=== PATIENT | male | born 1945 | race Hispanic/Latino ===

== ENCOUNTER 2017-12-02 01:49 | Emergency (ER) | payer MEDICARE, MEDICAID ==
[2017-12-02 01:49] VITALS: BMI 25.0
[2017-12-02 02:05] VITALS: BP 153/74; PULSE 65; RESP 16; TEMP 98; O2SAT 98
--- NOTE | 2017-12-02 02:20 | ED PDOC ---
HPI: General Adult Time Seen by Provider: 12/02/17 02:17 Chief Complaint (Nursing): Medical Clearance Chief Complaint (Provider): medical clearance History Per: Patient (72 y/o male here for evaluation prior to incarceration. Patient admits heroin use undisclosed amount 4 hours ago. Denies any chest pain /abd pain. Notes h/o parkinson's disease and plans to f/u for care. Denies any SI/HI.) Past Medical History Reviewed: Historical Data, Nursing Documentation, Vital Signs Vital Signs: Last Vital Signs Temp 98.0 F 12/02/17 02:03 Pulse 65 12/02/17 02:03 Resp 16 12/02/17 02:03 BP 153/74 H 12/02/17 02:03 Pulse Ox 98 12/02/17 02:21 - Medical History PMH: Pneumonia Denies: Depression, Diabetes, Hepatitis, HIV, HTN, Chronic Kidney Disease, Seizures, Sexually Transmitted Disease - Surgical History Surgical History: Appendectomy, Cholecystectomy, Tonsillectomy - Family History Family History: States: Unknown Family Hx - Immunization History Hx Tetanus Toxoid Vaccination: No Hx Influenza Vaccination: No Hx Pneumococcal Vaccination: No - Home Medications Home Medications: Ambulatory Orders Medication Instructions Recorded Cephalexin [cephalexin] 500 mg PO Q6H 03/15/17 Clindamycin [Cleocin] 300 mg PO TID #30 cap 03/15/17 Sulfamethoxazole/Trimethoprim 1 tab PO Q12H 03/15/17 [Bactrim DS Tab] Clindamycin [Cleocin] 300 mg PO QID #28 cap 03/19/17 Azithromycin [Zithromax] 250 mg PO DAILY #4 tab 07/19/17 Mupirocin 2% Cream [Bactroban 30 applic TOP BID #1 tube 08/18/17 Cream] - Allergies Allergies/Adverse Reactions: Allergies Allergy/AdvReac Type Severity Reaction Status Date / Time ibuprofen [From Motrin] Allergy ANAPHYLAXIS Verified 04/29/16 09:09 nitroglycerin Allergy ANAPHYLAXIS Verified 04/29/16 09:09 Review of Systems ROS Statement: Except As Marked, All Systems Reviewed And Found Negative Physical Exam - Reviewed Nursing Documentation Reviewed: Yes Vital Signs Reviewed: Yes - Physical Exam Appears: Positive for: Well, Non-toxic, No Acute Distress Head Exam: Positive for: ATRAUMATIC, NORMAL INSPECTION, NORMOCEPHALIC Skin: Positive for: Normal Color, Warm, DRY Eye Exam: Positive for: EOMI, Normal appearance, PERRL ENT: Positive for: Normal ENT Inspection Neck: Positive for: Normal, Painless ROM Cardiovascular/Chest: Positive for: Regular Rate, Rhythm Respiratory: Positive for: CNT, Normal Breath Sounds Gastrointestinal/Abdominal: Positive for: Normal Exam, Soft Back: Positive for: Normal Inspection Extremity: Positive for: Normal ROM Neurologic/Psych: Positive for: Alert, Oriented - ECG O2 Sat by Pulse Oximetry: 98 - Progress ED Course And Treament: Seen by Crisis Cleared for incarceration as per Dr. Hou Diagnosis Adjustment Disorder Disposition - Clinical Impression Clinical Impression: Heroin abuse - Patient ED Disposition Is Patient to be Admitted: No - Disposition Disposition: Routine/Home Disposition Time: 02:21 Condition: FAIR Additional Instructions: PATIENT IS MEDICALLY AND PSYCHIATRICALLY CLEARED FOR INCARCERATION Instructions: Drug Abuse and Drug Addiction (DC) Forms: [employer] (Polish)
== END 2017-12-02 02:46 | disposition home or self-care (01) ==
LOC: H.ER 01:49
DX: F11.10 Opioid abuse, uncomplicated (principal); G20 Parkinson's disease; Z88.6 Allergy status to analgesic agent

== ENCOUNTER 2018-02-03 19:34 | Observation (INO) | payer MEDICARE, MEDICAID ==
[2018-02-03 19:34] VITALS: BMI 25.0
--- NOTE | 2018-02-03 20:24 | ED PDOC ---
HPI: Psych/Substance Abuse Time Seen by Provider: 02/03/18 20:07 Chief Complaint (Nursing): Substance Abuse Chief Complaint (Provider): substance abuse History Per: EMS History/Exam Limitations: no limitations Additional Complaint(s): 72 y/o male brought in by EMS for evaluation of substance abuse. [place]. Patient awake, alert upon arrival. Patient admit to taking Percocets today, history of heroin abuse as per chart. Denies acute medical or psychiatric complaints. Past Medical History Reviewed: Historical Data, Nursing Documentation, Vital Signs Vital Signs: Last Vital Signs Temp 100.2 F H 02/03/18 19:35 Pulse 122 H 02/03/18 19:35 Resp 20 02/03/18 19:35 BP 115/70 02/03/18 19:35 Pulse Ox 94 L 02/03/18 19:35 - Medical History PMH: Pneumonia Denies: Depression, Diabetes, Hepatitis, HIV, HTN, Chronic Kidney Disease, Seizures, Sexually Transmitted Disease - Surgical History Surgical History: Appendectomy, Cholecystectomy, Tonsillectomy - Family History Family History: States: Unknown Family Hx - Immunization History Hx Tetanus Toxoid Vaccination: No Hx Influenza Vaccination: No Hx Pneumococcal Vaccination: No - Home Medications Home Medications: Ambulatory Orders Medication Instructions Recorded Cephalexin [cephalexin] 500 mg PO Q6H 03/15/17 Clindamycin [Cleocin] 300 mg PO TID #30 cap 03/15/17 Sulfamethoxazole/Trimethoprim 1 tab PO Q12H 03/15/17 [Bactrim DS Tab] Clindamycin [Cleocin] 300 mg PO QID #28 cap 03/19/17 Azithromycin [Zithromax] 250 mg PO DAILY #4 tab 07/19/17 Mupirocin 2% Cream [Bactroban 30 applic TOP BID #1 tube 08/18/17 Cream] - Allergies Allergies/Adverse Reactions: Allergies Allergy/AdvReac Type Severity Reaction Status Date / Time ibuprofen [From Motrin] Allergy ANAPHYLAXIS Verified 04/29/16 09:09 nitroglycerin Allergy ANAPHYLAXIS Verified 04/29/16 09:09 Review of Systems ROS Statement: Except As Marked, All Systems Reviewed And Found Negative Physical Exam - Reviewed Nursing Documentation Reviewed: Yes Vital Signs Reviewed: Yes - Physical Exam Appears: Positive for: Well, Non-toxic, No Acute Distress Head Exam: Positive for: ATRAUMATIC, NORMAL INSPECTION, NORMOCEPHALIC Skin: Positive for: Normal Color Eye Exam: Positive for: EOMI. Negative for: PERRL (pinpoint nonreactive b/l), Periorbital swelling, Periorbital tenderness, Conjunctival injection ENT: Positive for: Normal ENT Inspection Cardiovascular/Chest: Positive for: Regular Rate, Rhythm Respiratory: Positive for: Normal Breath Sounds Gastrointestinal/Abdominal: Positive for: Normal Exam Back: Positive for: Normal Inspection Extremity: Positive for: Normal ROM Neurologic/Psych: Positive for: Alert, Oriented (x3) - Laboratory Results Result Diagrams: 02/03/18 20:51 02/03/18 20:51 - ECG O2 Sat by Pulse Oximetry: 94 - Progress ED Course And Treament: labs, urine, ekg, chest xray, IV fluids Patient given Benadryl IM for acute agitation/itching 1:1 ordered for flight risk Patient ripped out IV, attempting to leave ED. Ativan IM ordered EXAM: XR Chest, 1 View CLINICAL HISTORY: 72 years old, male; Signs and symptoms; Fever; Prior surgery; Surgery date: 6+ months; Surgery type: Pacemaker; Additional info: Substance abuse TECHNIQUE: Frontal view of the chest. COMPARISON: [facility] - CHEST ONE VIEW 07/19/2017 3:08 AM FINDINGS: Lungs: Mild bibasilar infiltrates or atelectasis. Pleural space: Unremarkable. No pneumothorax. Heart: Unremarkable. No cardiomegaly. Mediastinum: Unremarkable. Bones/joints: Unremarkable. Tubes, lines and devices: Pacemaker. IMPRESSION: Mild bibasilar infiltrates or atelectasis. Similar appearance on prior study. IV rocephin, IV zithro ordered Case discussed with Dr. Covarrubias, medical service on-call, for admission Will give one dose IV clinda to cover for possible aspiration pneumonia Disposition - Clinical Impression Clinical Impression: Pneumonia, Substance abuse - Patient ED Disposition Is Patient to be Admitted: Yes - Disposition Disposition Time: 00:00 Condition: FAIR
[2018-02-03] MEDS ORDERED: Sodium Chloride 0.9% 1,000 ML IV STA (20:25)
[2018-02-03 20:52] LABS: VENOUS BLOOD GAS BASE EXCESS 0.4 mmol/L (0.0-2.0); VENOUS BLOOD GAS PCO2 53 mmHg (40-60); VENOUS BLOOD GAS PO2 25 mm/Hg (30-55); VENOUS BLOOD PH 7.32 (7.32-7.43)
[2018-02-03 21:01] LABS: BASO % 0.3 % (0.0-2.0); EOS % 0.4 % (0.0-4.0); LYMPH % 8.4 % (20.0-40.0); MEAN CELL VOLUME 88.3 fl (80.0-94.0); MEAN CORPUSCULAR HEMOGLOBIN 29.1 pg (27.0-31.0); MONO % 8.4 % (0.0-10.0); NEUT # 9.7 K/uL (1.8-7.0); NEUT % 82.5 % (50.0-75.0); PLATELET COUNT 147 K/uL (130-400); RBC 4.11 Mil/uL (4.40-5.90); RED CELL DISTRIBUTION WIDTH 15.9 % (11.5-14.5); WHITE BLOOD COUNT 11.8 K/uL (4.8-10.8)
[2018-02-03 21:05] LABS: ALB/GLOB RATIO 1.3 (1.0-2.1); ALBUMIN 4.8 g/dL (3.5-5.0); CALCIUM 9.3 mg/dL (8.4-10.2); GFR NON-AFRICAN AMERICAN 33
[2018-02-03 21:09] LABS: ALT/SGPT 173 U/L (21-72); AST/SGOT 121 U/L (17-59); BLOOD UREA NITROGEN 49 mg/dl (9-20)
[2018-02-03] MEDS ORDERED: DiphenhydrAMINE 50 mg/ml Inj IM STA (21:49)
[2018-02-03 22:00] LABS: BASOPHIL 1 % (0-2); LYMPHOCYTE 19 % (20-50); MONOCYTE 6 % (0-10); NEUTROPHIL 74 % (42-75); PLATELET ESTIMATE NORMAL (NORMAL); TOTAL CELLS COUNTED 100
[2018-02-04] MEDS ORDERED: Azithromycin 500 MG in Sodium Chloride 0.9% 250 ML IVPB STA (00:24)
[2018-02-04] MEDS ORDERED: Clindamycin 150 mg/mL Inj IV STA (00:25)
[2018-02-04] MEDS ORDERED: Clindamycin 600mg/50ml D5W 600 MG/50 ML VIAL IVPB STA (00:34)
[2018-02-04] MEDS ORDERED: cefTRIAXone (Rocephin) 1 gm Inj ONE (02:01)
[2018-02-04] MEDS ORDERED: Azithromycin 500 MG IV IVPB ONE (05:48)
[2018-02-04 08:13] VITALS: O2SAT 98
[2018-02-04] MEDS ORDERED: Sod Polystyrene Sulf 15 gm/60 ml Susp PO ONE (08:38)
[2018-02-04 08:43] LABS: SQUAMOUS EPITHIAL < 1 /hpf (0-5); URINE BILIRUBIN NEGATIVE (NEGATIVE); URINE BLOOD NEGATIVE (NEGATIVE); URINE CALCIUM OXALATE CRYSTALS OCC /hpf (<OCC); URINE CLARITY SLIGHTY-CLOUDY (Clear); URINE COLOR YELLOW (YELLOW); URINE GLUCOSE (UA) NEG (Normal); URINE LEUKOCYTE ESTERASE NEG Leu/uL (Negative); URINE PROTEIN 100 mg/dL (NEGATIVE); URINE UROBILINOGEN 0.2-1.0 mg/dL (0.2-1.0)
--- NOTE | 2018-02-04 08:57 | RAD ---
Date of service: 02/03/2018 HISTORY: substance abuse COMPARISON: 07/19/2017 FINDINGS: LUNGS: Shallow lung volumes. No dense consolidation. There is vague opacity at the right lung base - a patchy infiltrate here is possible. PLEURA: No significant pleural effusion identified, no pneumothorax apparent. CARDIOVASCULAR: Mild cardiomegaly. Mild pulmonary venous congestion. Duallead pacemaker device. OSSEOUS STRUCTURES: No significant abnormalities. VISUALIZED UPPER ABDOMEN: Right upper quadrant post cholecystectomy status. OTHER FINDINGS: None. IMPRESSION: Shallow lung volumes accentuating the pulmonary vasculature. Cardiomegaly and mild pulmonary venous congestion suspect. Possible patchy interval infiltrate right lung base. Shallow lung volumes accentuating this. . Consider follow-up PA and lateral with greater inspiration when patient can tolerate.
[2018-02-04] MEDS ORDERED: Dextrose 5%/Lactated Ringer's 1,000 ML IV SCH (09:00)
[2018-02-04 09:03] LABS: BARBITURATES, UR NEGATIVE (NEGATIVE); BENZODIAZEPINES, UR NEGATIVE (NEGATIVE); OPIATES, UR POSITIVE (NEGATIVE); PHENCYCLIDINE, UR NEGATIVE (NEGATIVE)
--- NOTE | 2018-02-04 10:11 | CARD ---
APPROVED REPORT Date of service: 02/03/2018 <Conclusion> Ventricular-paced rhythm Abnormal ECG
[2018-02-04 12:02] VITALS: RESP 19
[2018-02-04] MEDS ORDERED: Oxycodone/Acetaminophen 5/325 mg Tab PO PRN (13:05)
[2018-02-04] MEDS ORDERED: Oxycodone/Acetaminophen 5/325 mg Tab ONE (13:37)
[2018-02-04 15:44] VITALS: BP 128/78; PULSE 78; TEMP 98
--- NOTE | 2018-02-04 16:40 | CP.PCM.HP ---
History of Present Illness - History of Present Illness History of Present Illness: 72 y/o M with a PMHx of Homeless situation and Heroin abuse was brought by EMS to ER [facility] for evaluation after [place]. CXR was suspicious for bilateral lower mccormick pneumonia. Ceftriaxone, Clindamycin and Azithromycin were administered in the ER. -Today, pt was evaluated and examined by bedside with DR Covarrubias. Pt is awake, alert, oriented x3. Pt c/o fatigue. Present on Admission - Present on Admission Any Indicators Present on Admission: No Review of Systems - Constitutional Constitutional: absent: Anorexia, Chills, Fever - EENT Eyes: absent: Change in Vision Nose/Mouth/Throat: absent: Nasal Congestion, Sore Throat, Facial Pain - Cardiovascular Cardiovascular: absent: Chest Pain, Palpitations - Respiratory Respiratory: absent: Cough, Dyspnea - Gastrointestinal Gastrointestinal: absent: Abdominal Pain, Bloating - Genitourinary Genitourinary: absent: Hematuria, Urinary Frequency, Voiding Freq/Small Amts Past Patient History - Infectious Disease Hx of Infectious Diseases: None - Tetanus Immunizations Tetanus Immunization: Up to Date - Past Medical History & Family History Past Medical History?: Yes - Past Social History Smoking Status: Never Smoked - CARDIAC Hx Hypertension: No - PULMONARY Hx Pneumonia: Yes - NEUROLOGICAL Hx Seizures: No - HEENT Hx HEENT Problems: No - RENAL Hx Chronic Kidney Disease: No - ENDOCRINE/METABOLIC Hx Endocrine Disorders: No - HEMATOLOGICAL/ONCOLOGICAL Hx Human Immunodeficiency Virus (HIV): No - INTEGUMENTARY Hx Dermatological Problems: Yes Hx Cellulitis: Yes (Chronic cellulits B/L thighs) - MUSCULOSKELETAL/RHEUMATOLOGICAL Hx Musculoskeletal Disorders: Yes - GASTROINTESTINAL Hx Gastrointestinal Disorders: No - GENITOURINARY/GYNECOLOGICAL Hx Sexually Transmitted Disorders: No - PSYCHIATRIC Hx Depression: No - SURGICAL HISTORY Hx Appendectomy: Yes Hx Cholecystectomy: Yes Hx Tonsillectomy: Yes - ANESTHESIA Hx Anesthesia: Yes Hx Anesthesia Reactions: No Meds Allergies/Adverse Reactions: Allergies Allergy/AdvReac Type Severity Reaction Status Date / Time ibuprofen [From Motrin] Allergy ANAPHYLAXIS Verified 04/29/16 09:09 nitroglycerin Allergy ANAPHYLAXIS Verified 04/29/16 09:09 Physical Exam - Constitutional Appears: Well, No Acute Distress - Head Exam Head Exam: NORMAL INSPECTION - Eye Exam Eye Exam: EOMI, Normal appearance - ENT Exam ENT Exam: Mucous Membranes Moist - Neck Exam Neck exam: Positive for: Normal Inspection - Respiratory Exam Respiratory Exam: Decreased Breath Sounds (on bilateral lower mccormick. ), NORMAL BREATHING PATTERN - Cardiovascular Exam Cardiovascular Exam: REGULAR RHYTHM, +S1, +S2 - GI/Abdominal Exam GI & Abdominal Exam: Normal Bowel Sounds, Soft. absent: Distended, Guarding, Tenderness - Extremities Exam Extremities exam: Positive for: full ROM. Negative for: calf tenderness - Neurological Exam Neurological exam: Alert, Oriented x3 Results - Vital Signs Recent Vital Signs: Last Vital Signs Temp 98 F 02/04/18 15:42 Pulse 78 02/04/18 15:42 Resp 19 02/04/18 15:42 BP 128/78 02/04/18 15:42 Pulse Ox 98 02/04/18 15:42 - Labs Result Diagrams: 02/03/18 20:51 02/03/18 20:51 Labs: Laboratory Results - last 24 hr 02/03/18 02/03/18 02/03/18 20:18 20:31 20:51 WBC 11.8 H D RBC 4.11 L Hgb 12.0 Hct 36.2 MCV 88.3 D MCH 29.1 MCHC 33.0 RDW 15.9 H Plt Count 147 MPV 9.0 Neut % (Auto) 82.5 H Lymph % (Auto) 8.4 L Hendricks % (Auto) 8.4 Eos % (Auto) 0.4 Baso % (Auto) 0.3 Neut # (Auto) 9.7 H Lymph # (Auto) 1.0 Hendricks # (Auto) 1.0 H Eos # (Auto) 0.0 Baso # (Auto) 0.0 Neutrophils % (Manual) 74 Lymphocytes % (Manual) 19 L Monocytes % (Manual) 6 Basophils % (Manual) 1 Platelet Estimate Normal pO2 25 L VBG pH 7.32 VBG pCO2 53 VBG HCO3 24.1 VBG Total CO2 28.9 H VBG O2 Sat (Calc) 53.6 VBG Base Excess 0.4 VBG Potassium 5.1 Sodium 136.0 Chloride 102.0 Glucose 120 H Lactate 2.3 H FiO2 21.0 Potassium Carbon Dioxide Anion Gap BUN Creatinine Est GFR ( Amer) Est GFR (Non-Af Amer) POC Glucose (mg/dL) 128 H Random Glucose Lactic Acid Calcium Total Bilirubin AST ALT Alkaline Phosphatase Total Protein Albumin Globulin Albumin/Globulin Ratio Venous Blood Potassium 5.1 Urine Color Urine Clarity Urine pH Ur Specific [place] Urine Protein Urine Glucose (UA) Urine Ketones Urine Blood Urine Nitrate Urine Bilirubin Urine Urobilinogen Ur Leukocyte Esterase Urine RBC (Auto) Urine Microscopic WBC Ur Squamous Epith Cells Calcium Oxalate Crystal Urine Opiates Screen Urine Methadone Screen Ur Barbiturates Screen Ur Phencyclidine Scrn Ur Amphetamines Screen U Benzodiazepines Scrn U Oth Cocaine Metabols U Cannabinoids Screen Alcohol, Quantitative 02/03/18 02/04/18 02/04/18 20:51 01:33 08:32 WBC RBC Hgb Hct MCV MCH MCHC RDW Plt Count MPV Neut % (Auto) Lymph % (Auto) Hendricks % (Auto) Eos % (Auto) Baso % (Auto) Neut # (Auto) Lymph # (Auto) Hendricks # (Auto) Eos # (Auto) Baso # (Auto) Neutrophils % (Manual) Lymphocytes % (Manual) Monocytes % (Manual) Basophils % (Manual) Platelet Estimate pO2 VBG pH VBG pCO2 VBG HCO3 VBG Total CO2 VBG O2 Sat (Calc) VBG Base Excess VBG Potassium Sodium 139 Chloride 101 Glucose Lactate FiO2 Potassium 5.4 H Carbon Dioxide 21 L Anion Gap 22 H BUN 49 H Creatinine 2.0 H Est GFR ( Amer) 40 Est GFR (Non-Af Amer) 33 POC Glucose (mg/dL) Random Glucose 117 H Lactic Acid 1.4 Calcium 9.3 Total Bilirubin 1.3 AST 121 H D ALT 173 H D Alkaline Phosphatase 69 Total Protein 8.6 H Albumin 4.8 Globulin 3.8 Albumin/Globulin Ratio 1.3 Venous Blood Potassium Urine Color Urine Clarity Urine pH Ur Specific [place] Urine Protein Urine Glucose (UA) Urine Ketones Urine Blood Urine Nitrate Urine Bilirubin Urine Urobilinogen Ur Leukocyte Esterase Urine RBC (Auto) Urine Microscopic WBC Ur Squamous Epith Cells Calcium Oxalate Crystal Urine Opiates Screen Positive H Urine Methadone Screen Negative Ur Barbiturates Screen Negative Ur Phencyclidine Scrn Negative Ur Amphetamines Screen Negative U Benzodiazepines Scrn Negative U Oth Cocaine Metabols Negative U Cannabinoids Screen Negative Alcohol, Quantitative < 10 02/04/18 08:32 WBC RBC Hgb Hct MCV MCH MCHC RDW Plt Count MPV Neut % (Auto) Lymph % (Auto) Hendricks % (Auto) Eos % (Auto) Baso % (Auto) Neut # (Auto) Lymph # (Auto) Hendricks # (Auto) Eos # (Auto) Baso # (Auto) Neutrophils % (Manual) Lymphocytes % (Manual) Monocytes % (Manual) Basophils % (Manual) Platelet Estimate pO2 VBG pH VBG pCO2 VBG HCO3 VBG Total CO2 VBG O2 Sat (Calc) VBG Base Excess VBG Potassium Sodium Chloride Glucose Lactate FiO2 Potassium Carbon Dioxide Anion Gap BUN Creatinine Est GFR ( Amer) Est GFR (Non-Af Amer) POC Glucose (mg/dL) Random Glucose Lactic Acid Calcium Total Bilirubin AST ALT Alkaline Phosphatase Total Protein Albumin Globulin Albumin/Globulin Ratio Venous Blood Potassium Urine Color Yellow Urine Clarity Slighty-cloudy Urine pH 5.0 Ur Specific [place] 1.023 Urine Protein 100 Urine Glucose (UA) Neg Urine Ketones Negative Urine Blood Negative Urine Nitrate Negative Urine Bilirubin Negative Urine Urobilinogen 0.2-1.0 Ur Leukocyte Esterase Neg Urine RBC (Auto) 3 Urine Microscopic WBC 2 Ur Squamous Epith Cells < 1 Calcium Oxalate Crystal Occ H Urine Opiates Screen Urine Methadone Screen Ur Barbiturates Screen Ur Phencyclidine Scrn Ur Amphetamines Screen U Benzodiazepines Scrn U Oth Cocaine Metabols U Cannabinoids Screen Alcohol, Quantitative Assessment & Plan - Assessment and Plan (Free Text) Assessment: 72 y/o M with a PMHx of Homeless situation and Heroin abuse admitted for evaluation and management of ?aspiration pneumonia vs CAP. --Pt was reluctant to be admitted. --Pt was extensively educated on the risk and complications of pneumonia. More evaluation and prophylactic treatment were offered. however, pt decided to leave Against Medical Advise. Pt is oriented x3, reported understanding of the risk he is taking. Will leave AMA. --Pt instructed to f/u with PMD tomorrow. - Date & Time Date: 02/04/18 Time: 16:46
[2018-02-04] MEDS ORDERED: Clindamycin 600mg/50ml D5W 600 MG/50 ML VIAL IVPB SCH (21:00)
[2018-02-05] MEDS ORDERED: Azithromycin 500 MG in Sodium Chloride 0.9% 250 ML IVPB SCH (09:00)
== END 2018-02-04 15:42 | disposition left against medical advice (07) ==
LOC: H.ER 19:34 → H.ERHOLD 02-04 00:22
PROVIDERS: ADMIT Family Medicine; ATTEND Family Medicine
DX: J18.9 Pneumonia, unspecified organism (principal); F11.10 Opioid abuse, uncomplicated; Z87.01 Personal history of pneumonia (recurrent); Z53.29 Procedure and treatment not carried out because of patient's decision for other reasons; Z88.6 Allergy status to analgesic agent; Z59.0 Homelessness
CPT/HCPCS: 71045; 80053; 81003; 82803; 82948; 83605; 85025; 87040; 87149; 87205; 93005; 96372; 99285; G0378; G0480; J0456; J0696; J1200; J2060; J7120

== ENCOUNTER 2018-02-08 10:58 | Emergency (ER) | payer MEDICARE, MEDICAID ==
[2018-02-08 11:04] VITALS: BMI 23.5
[2018-02-08 11:05] VITALS: BP 116/81; RESP 20; TEMP 96.6; O2SAT 99
--- NOTE | 2018-02-08 11:29 | ED PDOC ---
HPI: Psych/Substance Abuse Time Seen by Provider: 02/08/18 11:08 Chief Complaint (Nursing): Substance Abuse History Per: EMS (72 yo brought by EMS from the train station because he was shaking. He is a known heroine user. He is presently awake and alert. He has no complaints. He is cooperative.) History/Exam Limitations: no limitations Past Medical History Reviewed: Historical Data, Nursing Documentation, Vital Signs Vital Signs: Last Vital Signs Temp 96.6 F L 02/08/18 11:04 Pulse 127 H 02/08/18 11:04 Resp 20 02/08/18 11:04 BP 116/81 02/08/18 11:04 Pulse Ox 99 02/08/18 11:04 - Medical History PMH: Pneumonia Denies: Depression, Diabetes, Hepatitis, HIV, HTN, Chronic Kidney Disease, Seizures, Sexually Transmitted Disease - Surgical History Surgical History: Appendectomy, Cholecystectomy, Tonsillectomy - Family History Family History: States: Unknown Family Hx - Immunization History Hx Tetanus Toxoid Vaccination: No Hx Influenza Vaccination: No Hx Pneumococcal Vaccination: No - Home Medications Home Medications: Ambulatory Orders Medication Instructions Recorded Atorvastatin [Lipitor] 40 mg PO HS 02/04/18 Folic Acid 1 mg PO DAILY 02/04/18 - Allergies Allergies/Adverse Reactions: Allergies Allergy/AdvReac Type Severity Reaction Status Date / Time ibuprofen [From Motrin] Allergy ANAPHYLAXIS Verified 02/08/18 11:05 nitroglycerin Allergy ANAPHYLAXIS Verified 02/08/18 11:05 Review of Systems ROS Statement: Except As Marked, All Systems Reviewed And Found Negative Physical Exam - Reviewed Nursing Documentation Reviewed: Yes Vital Signs Reviewed: Yes - Physical Exam Appears: Positive for: Well, Non-toxic, No Acute Distress Head Exam: Positive for: ATRAUMATIC, NORMAL INSPECTION, NORMOCEPHALIC Skin: Positive for: Normal Color, Warm, DRY Eye Exam: Positive for: EOMI, Normal appearance, PERRL ENT: Positive for: Normal ENT Inspection Neck: Positive for: Normal, Painless ROM Cardiovascular/Chest: Positive for: Regular Rate, Rhythm Respiratory: Positive for: CNT, Normal Breath Sounds Gastrointestinal/Abdominal: Positive for: Normal Exam, Soft Back: Positive for: Normal Inspection Extremity: Positive for: Normal ROM Neurologic/Psych: Positive for: Alert, Oriented - ECG O2 Sat by Pulse Oximetry: 99 Disposition - Clinical Impression Clinical Impression: Substance abuse - Patient ED Disposition Is Patient to be Admitted: No Doctor Will See Patient In The: Office Counseled Patient/Family Regarding: Diagnosis, Need For Followup - Disposition Disposition: Routine/Home Disposition Time: 11:30 Condition: STABLE Instructions: Drug Abuse and Drug Addiction (DC) Forms: [employer] (Guyanese) - POA Present On Arrival: None
[2018-02-08 11:42] VITALS: PULSE 105
== END 2018-02-08 11:43 | disposition home or self-care (01) ==
LOC: H.ER 10:58
DX: F19.10 Other psychoactive substance abuse, uncomplicated (principal); Z88.6 Allergy status to analgesic agent

== ENCOUNTER 2018-02-08 13:22 | Emergency (ER) | payer MEDICARE, MEDICAID ==
[2018-02-08 13:24] VITALS: BMI 23.5
[2018-02-08 13:29] VITALS: BP 140/97; PULSE 104; RESP 20; TEMP 98.6; O2SAT 97
--- NOTE | 2018-02-08 14:04 | ED PDOC ---
HPI: Psych/Substance Abuse Time Seen by Provider: 02/08/18 13:39 Chief Complaint (Nursing): Chest Pain Chief Complaint (Provider): med clearancce History Per: Patient Additional Complaint(s): EMS (72 yo brought by police and EMS bc he was acting erratic in the streets and combative. He is a known heroine user. He is presently awake and alert. He has no complaints. Pt reports he was yelling at police bc he is fine and did not want to come to the ER. He is cooperative and asking to leave. Pt recently discharged from the ER 2 hours ago. Past Medical History Reviewed: Nursing Documentation, Vital Signs Vital Signs: Last Vital Signs Temp 98.6 F 02/08/18 13:28 Pulse 104 H 02/08/18 13:28 Resp 20 02/08/18 13:28 BP 140/97 H 02/08/18 13:28 Pulse Ox 97 02/08/18 13:28 - Medical History PMH: Pneumonia Denies: Depression, Diabetes, Hepatitis, HIV, HTN, Chronic Kidney Disease, Seizures, Sexually Transmitted Disease - Surgical History Surgical History: Appendectomy, Cholecystectomy, Tonsillectomy - Family History Family History: States: Unknown Family Hx - Living Arrangements Living Arrangements: Other - Social History Drugs: Other (known heroin user) - Immunization History Hx Tetanus Toxoid Vaccination: No Hx Influenza Vaccination: No Hx Pneumococcal Vaccination: No - Home Medications Home Medications: Ambulatory Orders Medication Instructions Recorded Atorvastatin [Lipitor] 40 mg PO HS 02/04/18 Folic Acid 1 mg PO DAILY 02/04/18 - Allergies Allergies/Adverse Reactions: Allergies Allergy/AdvReac Type Severity Reaction Status Date / Time ibuprofen [From Motrin] Allergy ANAPHYLAXIS Verified 02/08/18 13:39 nitroglycerin Allergy ANAPHYLAXIS Verified 02/08/18 13:39 Review of Systems ROS Statement: Except As Marked, All Systems Reviewed And Found Negative Physical Exam - Reviewed Nursing Documentation Reviewed: Yes Vital Signs Reviewed: Yes - Physical Exam Appears: Positive for: Well, Non-toxic, No Acute Distress Head Exam: Positive for: ATRAUMATIC, NORMAL INSPECTION, NORMOCEPHALIC Skin: Positive for: Normal Color, Warm, DRY Eye Exam: Positive for: EOMI, Normal appearance, PERRL ENT: Positive for: Normal ENT Inspection Neck: Positive for: Normal, Painless ROM Cardiovascular/Chest: Positive for: Regular Rate, Rhythm Respiratory: Positive for: CNT, Normal Breath Sounds Gastrointestinal/Abdominal: Positive for: Normal Exam, Soft Back: Positive for: Normal Inspection Extremity: Positive for: Normal ROM Neurologic/Psych: Positive for: Alert, Oriented - ECG O2 Sat by Pulse Oximetry: 97 Medical Decision Making Medical Decision Making: Pt refusing all treatments at this time, ambulated out of ED with help of walker. Disposition - Clinical Impression Clinical Impression: Substance abuse - Patient ED Disposition Is Patient to be Admitted: No - Disposition Disposition: Left W/O Treatment Disposition Time: 14:05 Condition: STABLE Forms: [employer] (Armenian)
== END 2018-02-08 14:10 | disposition home or self-care (01) ==
LOC: H.ER 13:22
DX: F19.10 Other psychoactive substance abuse, uncomplicated (principal)

== ENCOUNTER 2018-02-08 15:01 | Emergency (ER) | payer MEDICARE, MEDICAID ==
[2018-02-08 15:02] VITALS: BMI 23.5
[2018-02-08 15:21] VITALS: PULSE 124; TEMP 98.6
--- NOTE | 2018-02-08 15:29 | ED PDOC ---
HPI: Psych/Substance Abuse Time Seen by Provider: 02/08/18 15:20 Chief Complaint (Nursing): Substance Abuse Chief Complaint (Provider): Substance abuse History Per: Patient Additional Complaint(s): EMS 72 yo brought by police and EMS bc he was acting erratic in the streets. He is a known heroine user. He is presently awake and alert. He has no complaints. Pt reports he was yelling at police bc he is fine and did not want to come to the ER. He is cooperative and asking to leave. Pt seen and evaluated here in the ED 2 x earlier today and was discharged home ~ 30 minutes ago because he did not want to be seen. Pt does not want to be seen at this time, offers no complaints. Pt showing staff he has money and asking for a cab to [facility] "If i walk out they will bring me back again." Past Medical History Reviewed: Nursing Documentation, Vital Signs Vital Signs: Last Vital Signs Temp 98.6 F 02/08/18 15:19 Pulse 124 H 02/08/18 15:19 Resp 20 02/08/18 15:19 BP 96/63 L 02/08/18 15:19 Pulse Ox 98 02/08/18 15:19 - Medical History PMH: Pneumonia Denies: Depression, Diabetes, Hepatitis, HIV, HTN, Chronic Kidney Disease, Seizures, Sexually Transmitted Disease - Surgical History Surgical History: Appendectomy, Cholecystectomy, Tonsillectomy - Family History Family History: States: Unknown Family Hx - Living Arrangements Living Arrangements: Other - Immunization History Hx Tetanus Toxoid Vaccination: No Hx Influenza Vaccination: No Hx Pneumococcal Vaccination: No - Home Medications Home Medications: Ambulatory Orders Medication Instructions Recorded Atorvastatin [Lipitor] 40 mg PO HS 02/04/18 Folic Acid 1 mg PO DAILY 02/04/18 - Allergies Allergies/Adverse Reactions: Allergies Allergy/AdvReac Type Severity Reaction Status Date / Time ibuprofen [From Motrin] Allergy ANAPHYLAXIS Verified 02/08/18 15:19 nitroglycerin Allergy ANAPHYLAXIS Verified 02/08/18 15:19 Review of Systems ROS Statement: Except As Marked, All Systems Reviewed And Found Negative Physical Exam - Reviewed Nursing Documentation Reviewed: Yes Vital Signs Reviewed: Yes - Physical Exam Appears: Positive for: Well, Non-toxic, No Acute Distress Head Exam: Positive for: ATRAUMATIC, NORMAL INSPECTION, NORMOCEPHALIC Skin: Positive for: Normal Color, Warm, DRY Eye Exam: Positive for: EOMI, Normal appearance, PERRL ENT: Positive for: Normal ENT Inspection Neck: Positive for: Normal, Painless ROM Cardiovascular/Chest: Positive for: Regular Rate, Rhythm Respiratory: Positive for: CNT, Normal Breath Sounds Gastrointestinal/Abdominal: Positive for: Normal Exam, Soft Back: Positive for: Normal Inspection Extremity: Positive for: Normal ROM Neurologic/Psych: Positive for: Alert, Oriented - ECG O2 Sat by Pulse Oximetry: 98 Medical Decision Making Medical Decision Making: taxi service called. Pt discharged Disposition - Clinical Impression Clinical Impression: Substance abuse - Patient ED Disposition Is Patient to be Admitted: No - Disposition Disposition: Routine/Home Disposition Time: 15:50 Condition: STABLE Instructions: Drug Abuse and Drug Addiction (DC) Forms: [employer] (Russian)
[2018-02-08 16:09] VITALS: BP 107/62; RESP 17; O2SAT 99
== END 2018-02-08 16:09 | disposition home or self-care (01) ==
LOC: H.ER 15:01
DX: F19.10 Other psychoactive substance abuse, uncomplicated (principal)